=== PATIENT | female | born 1995 | race Caucasian/White ===

== ENCOUNTER 2019-09-25 10:01 | Emergency (ER) | payer BC, OTHER, SELFPAY ==
[2019-09-25 11:22] LABS: HIV (1/2) Antibody/Antigen Non-Reactive (NonReactive); Hep C IgG Ab Non-Reactive (NonReactive); Hep C Index 0.24 S/CO (0-0.79)
[2019-09-25 11:45] LABS: HBSAB Concentration 179.47 mIU/mL; Hep B Surf AB Reactive (NonReactive)
== END 2019-09-25 10:23 | disposition home or self-care (01) ==
LOC: ERS 10:01
DX: Z77.21 Contact with and (suspected) exposure to potentially hazardous body fluids (principal)
CPT/HCPCS: 36415; 86706; 86803; 87389; 99283